=== PATIENT | male | born 1965 | race African-American/Black ===

== ENCOUNTER 2017-04-21 07:00 | Outpatient (CLI) | payer MEDICARE, MEDICAID | END 2017-04-21 07:01 | disposition home or self-care (01) | LOC: BICMRI 07:00 | DX: M54.2 Cervicalgia (principal); M54.5 Low back pain; M47.892 Other spondylosis, cervical region; M50.20 Other cervical disc displacement, unspecified cervical region; M48.02 Spinal stenosis, cervical region; M48.061 Spinal stenosis, lumbar region without neurogenic claudication; M99.71 Connective tissue and disc stenosis of intervertebral foramina of cervical region; M25.78 Osteophyte, vertebrae; M99.73 Connective tissue and disc stenosis of intervertebral foramina of lumbar region | CPT/HCPCS: 72141 ==

== ENCOUNTER 2017-04-21 13:35 | Outpatient (CLI) | payer MEDICARE, MEDICAID | END 2017-04-21 13:36 | disposition home or self-care (01) | LOC: BICMRI 13:35 | PROVIDERS: ATTEND Anesthesiology Pain Medicine | DX: M47.26 Other spondylosis with radiculopathy, lumbar region (principal); M54.5 Low back pain; G89.29 Other chronic pain ==

== ENCOUNTER 2017-05-17 13:26 | Emergency (ER) | payer MEDICARE, MEDICAID | END 2017-05-17 14:15 | disposition home or self-care (01) | LOC: ERS 13:26 | DX: K61.0 Anal abscess (principal); K61.1 Rectal abscess; R09.81 Nasal congestion; I70.90 Unspecified atherosclerosis; F32.9 Major depressive disorder, single episode, unspecified; F17.210 Nicotine dependence, cigarettes, uncomplicated | CPT/HCPCS: 99283 ==

== ENCOUNTER 2017-05-20 02:15 | Observation (INO) | payer MEDICARE, MEDICAID ==
[2017-05-20 03:43] LABS: Prothrombin Time 13.1 SEC (12.0-14.7)
[2017-05-20 03:44] LABS: PTT 32.6 SEC (22.9-36.1)
[2017-05-20 03:55] LABS: Hemoglobin 13.5 g/dL (14.0-18.0); Mean Corpuscular HGB CONC 33.5 g/dL (32.0-36.0); Mean Corpuscular Hemoglobin 33.6 pg (27.0-31.0); Mean Platelet Volume 6.8 fL (7.4-10.4); Platelet Count 252 thou/uL (130-400); RBC Distribution Width 11.2 % (11.5-14.5); Red Blood Cell (RBC) Count 4.02 mill/uL (4.70-6.10); White Blood Cell (WBC) Count 6.5 thou/uL (4.8-10.8)
[2017-05-20 03:57] LABS: Acetaminophen Less than 6.0 mcg/mL (10.0-30.0); Alcohol 340 mg/dL (Less than 10); Salicylate Less than 8.0 mg/dL (15.0-30.0)
[2017-05-20 03:59] LABS: ALT (SGPT) 27 U/L (8-55); AST (SGOT) 28 U/L (5-34); Albumin 3.5 g/dL (3.5-5.0); Alkaline Phosphatase 66 U/L (40-150); Anion Gap 14 mmol/L (10-20); BUN (Urea Nitrogen) 5 mg/dL (8.9-20.6); Bilirubin, Total 0.2 mg/dL (0.2-1.2); Calc. Creatinine Clearance 0 mL/min (70-130); Calcium 8.3 mg/dL (7.8-10.44); Carbon Dioxide 26 mmol/L (22-29); Chloride 107 mmol/L (98-107); Estimated GFR-MDRD Greater than 90; Glucose 87 mg/dL (70-105); Lipase 103 U/L (8-78); Magnesium 2.1 mg/dL (1.6-2.6); Potassium 4.3 mmol/L (3.5-5.1); Protein, Total 6.5 g/dL (6.0-8.3); Sodium 143 mmol/L (136-145)
[2017-05-20 04:07] LABS: Troponin I Less than 0.010 ng/mL (< 0.028)
[2017-05-20 04:10] LABS: Band 1 % (5-11); Eosinophils 3 % (0-10); Lymphocytes 50 % (21-51); MDiff Complete? YES; Monocytes 4 % (0-10); Neutrophil 41 % (42-75)
[2017-05-20] MEDS ORDERED: traMADol HCl 50 MG TAB PO PRN (04:15)
[2017-05-20] MEDS ORDERED: Ondansetron HCl/PF 4 MG/2 ML Vial IVP PRN (04:16)
[2017-05-20] MEDS ORDERED: hydrALAZINE 20 MG/ML VIAL SLOW IVP PRN (04:16)
[2017-05-20] MEDS ORDERED: Dextrose 5% in Water 1,000 ML IV PRN (04:16)
[2017-05-20] MEDS ORDERED: Dextrose 50% Abboject 50 ML SYRINGE SLOW IVP PRN (04:16)
[2017-05-20] MEDS ORDERED: Ondansetron ODT 4 MG TAB PO PRN (04:16)
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
[2017-05-20] MEDS ORDERED: Oxazepam 10 MG CAP PO SCH ×2 (06:00→09:00)
[2017-05-20 07:31] VITALS: BMI 22.6
[2017-05-20] MEDS: Oxazepam 10 MG CAP PO SCH ×3 (08:02→20:31)
[2017-05-20] MEDS: Acetaminophen 500 MG TAB PO SCH ×4 (08:02→23:54)
[2017-05-20] MEDS: Famotidine/PF 20 mg/2ml Vial SLOW IVP SCH ×2 (08:02→20:31)
[2017-05-20] MEDS: Sodium Chloride 0.9% 1,000 ML IV SCH ×3 (08:02→20:30)
[2017-05-20] MEDS: Folic Acid 1 MG TAB PO SCH (08:04)
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
--- NOTE | 2017-05-20 08:43 | RAD ---
CHEST 1 VIEW: HISTORY: Fall. Chest injury. COMPARISON: 03/19/16. FINDINGS: Cardiac silhouette is magnified by projection. Pulmonary vasculature is unremarkable. Mediastinum i s midline. There is no confluent airspace consolidation or evidence of pneumothorax. IMPRESSION: No active cardiopulmonary abnormalities are demonstrated. POS: [facility]
[2017-05-20] MEDS ORDERED: Lidocaine 1% (PF) 30 ML VIAL ONE ×2 (11:13→11:27)
[2017-05-20] MEDS ORDERED: Lidocaine 1% w/Epinephrine 1:200K 30 ML VIAL FS SCH (11:45)
[2017-05-20] MEDS: traMADol HCl 50 MG TAB PO PRN ×3 (13:09→23:53)
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
--- NOTE | 2017-05-20 18:47 | PRG ---
DATE OF SERVICE: 05/20/2017 SUBJECTIVE: The patient is hospital day #2 status post fall, complained of neck pain and arm pain. The patient was highly intoxicated when he came to the Emergency Department with a blood alcohol of 3 40. The patient underwent evaluation and examination and was noted to have a questionable finding on his C-spine, but had no neurologic symptoms with that. This morning, the patient remains in a cervi halley collar per Neurosurgery's instructions. His pain is being controlled and his chief complaint is that he would like to go outside and smoke a cigarette. Otherwise, he is tolerating a diet and has b een out of bed to utilize the bathroom. The patient informed us that he was scheduled for surgery to day with Dr. Isaacs for gluteal abscess as an outpatient. We will notify Dr. Isaacs that the patient is here to see how he would like to arrange followup. PHYSICAL EXAMINATION: VITAL SIGNS: Temperature is 97.8, heart rate 76, blood pressure 109/70, respirations 18, oxygen satu ration 96% on room air. GENERAL: Patient is resting comfortably. He is alert and oriented x3. Mahomet coma scale is 15. LUNGS: Clear to auscultation bilaterally. HEART: Regular rate and rhythm. ABDOMEN: Soft, flat, nontender with active bowel sounds. EXTREMITIES: Neurovascularly intact x4. LABORATORY DATA: There were no labs or radiographs to review this morning. ASSESSMENT AND PLAN: 1. Status post ground level fall. 2. Neck pain. 3. Chronic gluteal abscess. Plan will be to continue supportive care. The patient will be discharged from our service. We will let Dr. Isaacs know that. The patient no longer requires a trauma admission.
[2017-05-20] MEDS ORDERED: Magnesium Citrate 300 ML BOT PO SCH (20:00)
[2017-05-20] MEDS: Amoxicillin/Potassium Clav 500 MG TAB PO SCH (20:31)
[2017-05-21] MEDS: Acetaminophen 500 MG TAB PO SCH ×2 (04:40→12:56)
[2017-05-21] MEDS: Sodium Chloride 0.9% 1,000 ML IV SCH (04:41)
[2017-05-21] MEDS: Oxazepam 10 MG CAP PO SCH ×2 (04:41→14:43)
[2017-05-21 05:04] VITALS: BP 111/71; TEMP 97.3
[2017-05-21] MEDS ORDERED: Lidocaine 2% Jelly 5 ML TUBE ONE (06:48)
[2017-05-21] MEDS ORDERED: Bupivacaine PF 0.5% 30 ML VIAL ONE (06:48)
[2017-05-21] MEDS ORDERED: Lidocaine 2% w/Epinephrine 1:200K 20 ML VIAL ONE (06:48)
[2017-05-21] MEDS ORDERED: Fentanyl 100 MCG/2 ML VIAL ONE (07:24)
--- NOTE | 2017-05-21 09:03 | OP ---
DATE OF PROCEDURE: 05/21/2017 PREOPERATIVE DIAGNOSIS: Perirectal abscess. POSTOPERATIVE DIAGNOSIS: Induration perirectal left, anterior lateral. SURGEON: Dr. Luke Isaacs ANESTHESIA: General. Local 0.25% Marcaine mixed with 1% Xylocaine with epinephrine. PROCEDURE: Incision and drainage of perirectal abscess. FINDINGS: The patient did not have any purulent material, but it was indurated, careful diligent sea rch for the surrounding area failed to reveal a distinct abscess, the skin was excoriated, macerated overlying this it may have been more just a local cellulitis soft tissue infection and not a true per irectal abscess. PROCEDURE IN DETAIL: The patient was taken to the operating room where under general anesthesia in t he dorsal lithotomy position, the perianal area and buttocks prepared with Betadine, draped in routin e fashion. Local anesthetic infiltrated into skin and subcutaneous tissue. Radial incision made lef t anterior lateral and carried down through the skin and subcutaneous tissue. There was indurated ar ea. This was undermined, dissected and there is no drainage as noted above. Wound left open and pac ked open after gaining hemostasis with the cautery. The patient tolerated the procedure well. The plan postoperative is for the patient be discharged home. He will follow up with Dr. Alcantara for cervical spine problems and his paresthesias. He has chronic pain management physician, he will requ katy his pain medications from that physician. The patient was given Ultram and Augmentin. He will f ollow up in my office in about 2 weeks. He will remove the packing later tonight or tomorrow when he begins daily warm to hot baths with soap and water, washing the area. He does not have to repack e area. He will place a Kotex pad or gauze dressing in his underwear to control any drainage.
[2017-05-21] MEDS: Folic Acid 1 MG TAB PO SCH (10:03)
[2017-05-21] MEDS: traMADol HCl 50 MG TAB PO PRN (10:03)
[2017-05-21] MEDS: Amoxicillin/Potassium Clav 500 MG TAB PO SCH (10:04)
[2017-05-21] MEDS: Famotidine/PF 20 mg/2ml Vial SLOW IVP SCH (10:04)
[2017-05-21] MEDS ORDERED: Propofol 200 MG/20 ML VIAL ONE (12:08)
[2017-05-21] MEDS ORDERED: Ketorolac Tromethamine 30 MG/ML VIAL ONE (12:08)
[2017-05-21] MEDS ORDERED: Ondansetron HCl/PF 4 MG/2 ML Vial ONE (12:08)
[2017-05-21] MEDS ORDERED: Lidocaine 1% PF 5 ML VIAL ONE (12:08)
--- NOTE | 2017-05-29 17:49 | EKG ---
Test Reason : Blood Pressure : / mmHG Vent. Rate : 084 BPM Atrial Rate : 084 BPM P-R Int : 142 ms QRS Dur : 096 ms QT Int : 388 ms P-R-T Axes : -01 021 -01 degrees QTc Int : 458 ms Normal sinus rhythm Normal ECG Confirmed by MILAD SMITH D.O. ([id number]), commercial production editor CATINA PEDERSON ([id number]) on 05/29/2017 5:48:13 PM Referred By: Confirmed By:MILAD SMITH D.O.
== END 2017-05-21 14:43 | disposition home or self-care (01) ==
LOC: ERS 02:15 → SURG A 05:47
PROVIDERS: ADMIT Specialist; ATTEND Specialist
PROC: 0D9P0ZX Drainage of Rectum, Open Approach, Diagnostic (ICD-10-PCS; principal; 2017-05-20)
DX: K61.1 Rectal abscess (principal); S00.81XA Abrasion of other part of head, initial encounter; F10.129 Alcohol abuse with intoxication, unspecified; F17.210 Nicotine dependence, cigarettes, uncomplicated; I10 Essential (primary) hypertension; M50.20 Other cervical disc displacement, unspecified cervical region; M81.0 Age-related osteoporosis without current pathological fracture; G89.29 Other chronic pain; G89.11 Acute pain due to trauma; Z79.899 Other long term (current) drug therapy; Z96.651 Presence of right artificial knee joint; Z98.890 Other specified postprocedural states; Z91.81 History of falling; Z82.49 Family history of ischemic heart disease and other diseases of the circulatory system; Z82.61 Family history of arthritis; Y90.8 Blood alcohol level of 240 mg/100 ml or more; W19.XXXA Unspecified fall, initial encounter
CPT/HCPCS: 46040; 70450; 71045; 72125; 80053; 80307; 82553; 83690; 83735; 84484; 85025; 85610; 85730; 93005; 96374; 96376 ×2; 97139; 99285; G0378; 36415; G0390; J1885; J2001; J2405; J2704; J3010; S0020; S0028

== ENCOUNTER 2017-09-02 01:51 | Observation (INO) | payer MEDICARE, MEDICAID ==
[2017-09-02 02:19] LABS: #Basophils 0.1 thou/uL (0.0-0.2); #Eosinphils 0.1 thou/uL (0.0-0.7); #Lymphocytes 2.1 thou/uL (1.20-3.40); #Monocytes 0.6 thou/uL (0.11-0.59); #Neutrophils 5.1 thou/uL (1.40-6.50); %Basophils 0.9 % (0.0-1.0); %Lymphocytes 26.2 % (21.0-51.0); %Monocytes 7.1 % (0.0-10.0); %Neutrophils 64.9 % (42.0-75.0); Hemoglobin 12.6 g/dL (14.0-18.0); Mean Corpuscular HGB CONC 34.3 g/dL (32.0-36.0); Mean Corpuscular Hemoglobin 34.1 pg (27.0-31.0); Mean Corpuscular Volume 99.4 fl (80.0-94.0); Mean Platelet Volume 6.9 fL (7.4-10.4); Platelet Count 145 thou/uL (130-400); RBC Distribution Width 11.5 % (11.5-14.5); Red Blood Cell (RBC) Count 3.69 mill/uL (4.70-6.10); White Blood Cell (WBC) Count 7.8 thou/uL (4.8-10.8)
[2017-09-02 02:35] LABS: ALT (SGPT) 46 U/L (8-55); AST (SGOT) 138 U/L (5-34); Albumin 3.1 g/dL (3.5-5.0); Alcohol 296 mg/dL (Less than 10); Alkaline Phosphatase 94 U/L (40-150); Anion Gap 13 mmol/L (10-20); BUN (Urea Nitrogen) 9 mg/dL (8.9-20.6); Bilirubin, Total 0.3 mg/dL (0.2-1.2); Calc. Creatinine Clearance 0 mL/min (70-130); Calcium 7.4 mg/dL (7.8-10.44); Carbon Dioxide 19 mmol/L (22-29); Chloride 113 mmol/L (98-107); Estimated GFR-MDRD Greater than 90; Globulin 2.5 g/dL (2.4-3.5); Glucose 91 mg/dL (70-105); Potassium 3.9 mmol/L (3.5-5.1); Protein, Total 5.6 g/dL (6.0-8.3); Sodium 141 mmol/L (136-145)
[2017-09-02] MEDS ORDERED: Fentanyl 100 MCG/2 ML VIAL ONE ×2 (02:44→05:47)
[2017-09-02] MEDS ORDERED: Lidocaine 1% (PF) 30 ML VIAL ONE (03:26)
[2017-09-02] MEDS ORDERED: Multivitamins, Adult 10 ML, Thiamine HCl 100 MG, Folic Acid 1 MG in Dextrose 5 %-0.45 %... IV SCH (04:00)
[2017-09-02] MEDS ORDERED: CEFAZOLIN 1 GM, Syringe 2.5 ML in Sterile Water 7.5 ML SLOW IVP SCH (04:00)
[2017-09-02] MEDS ORDERED: Lidocaine 1% w/Epinephrine 1:100K 20 ML VIAL ONE (04:23)
[2017-09-02] MEDS ORDERED: Ondansetron HCl/PF 4 MG/2 ML Vial IVP PRN (04:35)
[2017-09-02] MEDS ORDERED: Ondansetron ODT 4 MG TAB PO PRN (04:35)
[2017-09-02] MEDS ORDERED: Dextrose 5% in Water 1,000 ML IV PRN (04:35)
[2017-09-02] MEDS ORDERED: Dextrose 50% Abboject 50 ML SYRINGE SLOW IVP PRN (04:35)
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
[2017-09-02] MEDS ORDERED: Bacitracin Zinc Ointment 30 gm TUBE ONE (06:40)
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
[2017-09-02] MEDS: Acetaminophen 500 MG TAB PO SCH ×3 (10:22→17:22)
[2017-09-02] MEDS: Famotidine 20 MG TAB PO SCH ×2 (10:22→21:52)
[2017-09-02] MEDS: Multivit, Therapeutic 1 TAB PO SCH (10:22)
[2017-09-02] MEDS: Folic Acid 1 MG TAB PO SCH (10:22)
[2017-09-02] MEDS: Ibuprofen 800 MG TAB PO SCH ×3 (10:22→21:57)
[2017-09-02] MEDS: Lactated Ringer's 1,000 ML IV SCH ×3 (10:22→21:49)
[2017-09-02] MEDS: Bacitracin Zinc 1 Packet TOP SCH ×3 (10:22→22:23)
[2017-09-02] MEDS: Polyethylene Glycol 3350 17 GM Packet PO SCH (10:23)
[2017-09-02] MEDS: Senokot S 8.6-50 MG TAB PO SCH ×2 (10:23→21:52)
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
[2017-09-02] MEDS ORDERED: Lidocaine 1% PF 5 ML VIAL ONE (12:41)
[2017-09-02] MEDS ORDERED: PROPOFOL 200 MG/20 ML VIAL ONE (12:41)
[2017-09-02] MEDS ORDERED: PHENYLEPHRINE-NS 100 MCG/ML 10 ML SYRINGE ONE (12:41)
[2017-09-02] MEDS ORDERED: Succinylcholine Chloride 20 MG/ML 10 ml SYRINGE FS ONE (12:41)
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
[2017-09-02] MEDS ORDERED: ISOVUE-370 76%-LOCM 1 ML ONE (13:21)
[2017-09-02] MEDS: Oxazepam 10 MG CAP PO SCH ×2 (14:59→21:53)
[2017-09-03] MEDS: Acetaminophen 500 MG TAB PO SCH ×5 (00:14→23:58)
[2017-09-03] MEDS: Lactated Ringer's 1,000 ML IV SCH (04:46)
[2017-09-03 05:09] LABS: Anion Gap 8 mmol/L (10-20); BUN (Urea Nitrogen) 8 mg/dL (8.9-20.6); Calc. Creatinine Clearance 131 mL/min (70-130); Calcium 8.2 mg/dL (7.8-10.44); Carbon Dioxide 27 mmol/L (22-29); Chloride 107 mmol/L (98-107); Estimated GFR-MDRD Greater than 90; Glucose 111 mg/dL (70-105); Magnesium 2.3 mg/dL (1.6-2.6); Phosphorus 3.3 mg/dL (2.3-4.7); Potassium 3.6 mmol/L (3.5-5.1); Sodium 138 mmol/L (136-145)
[2017-09-03] MEDS: Ibuprofen 800 MG TAB PO SCH ×3 (05:45→21:59)
[2017-09-03] MEDS: Oxazepam 10 MG CAP PO SCH ×3 (05:45→20:25)
[2017-09-03] MEDS: Senokot S 8.6-50 MG TAB PO SCH ×2 (09:20→20:24)
[2017-09-03] MEDS: Famotidine 20 MG TAB PO SCH ×2 (09:20→20:25)
[2017-09-03] MEDS: Multivit, Therapeutic 1 TAB PO SCH (09:20)
[2017-09-03] MEDS: Folic Acid 1 MG TAB PO SCH (09:20)
[2017-09-03] MEDS: Polyethylene Glycol 3350 17 GM Packet PO SCH (09:20)
[2017-09-03] MEDS: Bacitracin Zinc 1 Packet TOP SCH ×3 (09:21→22:03)
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
[2017-09-04] MEDS: Acetaminophen 500 MG TAB PO SCH (05:34)
[2017-09-04] MEDS: Ibuprofen 800 MG TAB PO SCH (05:34)
[2017-09-04 08:09] VITALS: BP 158/94; TEMP 98
[2017-09-04] MEDS: Bacitracin Zinc 1 Packet TOP SCH (09:13)
[2017-09-04] MEDS: Multivit, Therapeutic 1 TAB PO SCH (09:13)
[2017-09-04] MEDS: Folic Acid 1 MG TAB PO SCH (09:13)
[2017-09-04] MEDS: Famotidine 20 MG TAB PO SCH (09:13)
[2017-09-04] MEDS: Polyethylene Glycol 3350 17 GM Packet PO SCH (09:14)
[2017-09-04] MEDS: Senokot S 8.6-50 MG TAB PO SCH (09:14)
[2017-09-04] MEDS: Oxazepam 10 MG CAP PO SCH (09:16)
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
== END 2017-09-04 11:08 | disposition home or self-care (01) ==
LOC: ERS 01:51 → SDC/OP 05:19 → SURG B 08:41
PROVIDERS: ADMIT Specialist; ATTEND Specialist
PROC: 08QRXZZ Repair Left Lower Eyelid, External Approach (ICD-10-PCS; principal; 2017-09-02)
DX: S01.112A Laceration without foreign body of left eyelid and periocular area, initial encounter (principal); F10.129 Alcohol abuse with intoxication, unspecified; I10 Essential (primary) hypertension; M81.0 Age-related osteoporosis without current pathological fracture; Z98.890 Other specified postprocedural states; Y09 Assault by unspecified means
CPT/HCPCS: 12001; 12011; 40650; 70450; 70486; 71260; 72125; 73030; 73130; 74177; 80048; 80053; 80307; 83735; 84100; 85025; 96361; 96365; 96375; 99291; G0378 ×2; 36415; A4216; G0390; J0690; J2001; J2704; J3010; J3411; J7042

== ENCOUNTER 2017-09-16 10:56 | Emergency (ER) | payer MEDICARE, MEDICAID ==
[2017-09-16] MEDS ORDERED: ISOVUE-370 76%-LOCM 1 ML ONE (12:14)
--- NOTE | 2017-09-16 12:30 | RAD ---
PA AND LATERAL CHEST: History: Chest pain. FINDINGS: Comparison is made with exam of 03-19-16. The heart size is normal. The lungs are expanded without focal areas of consolidation, pneumothoraces , or pleural effusions. No acute osseous abnormalities are seen. There is mild compression of the low er thoracic vertebral body. IMPRESSION: No radiographic evidence of acute cardiopulmonary process. POS: OFF
[2017-09-16] MEDS ORDERED: Ketorolac Tromethamine 30 MG/ML VIAL ONE (12:47)
[2017-09-16 13:06] LABS: #Basophils 0.1 thou/uL (0.0-0.2); #Eosinphils 0.3 thou/uL (0.0-0.7); #Lymphocytes 3.3 thou/uL (1.20-3.40); #Monocytes 0.7 thou/uL (0.11-0.59); #Neutrophils 3.9 thou/uL (1.40-6.50); %Basophils 1.3 % (0.0-1.0); %Eosinophils 3.3 % (0.0-10.0); %Lymphocytes 40.2 % (21.0-51.0); %Monocytes 8.4 % (0.0-10.0); %Neutrophils 46.8 % (42.0-75.0); Hemoglobin 12.8 g/dL (14.0-18.0); Mean Corpuscular HGB CONC 33.3 g/dL (32.0-36.0); Mean Corpuscular Hemoglobin 33.5 pg (27.0-31.0); Mean Platelet Volume 6.2 fL (7.4-10.4); Platelet Count 411 thou/uL (130-400); RBC Distribution Width 11.5 % (11.5-14.5); Red Blood Cell (RBC) Count 3.81 mill/uL (4.70-6.10); White Blood Cell (WBC) Count 8.3 thou/uL (4.8-10.8)
[2017-09-16 13:32] LABS: ALT (SGPT) 15 U/L (8-55); AST (SGOT) 16 U/L (5-34); Albumin 3.6 g/dL (3.5-5.0); Alkaline Phosphatase 84 U/L (40-150); Anion Gap 9 mmol/L (10-20); BUN (Urea Nitrogen) 6 mg/dL (8.9-20.6); Bilirubin, Total 0.3 mg/dL (0.2-1.2); Calc. Creatinine Clearance 0 mL/min (70-130); Calcium 8.7 mg/dL (7.8-10.44); Carbon Dioxide 26 mmol/L (22-29); Chloride 109 mmol/L (98-107); Estimated GFR-MDRD Greater than 90; Globulin 2.6 g/dL (2.4-3.5); Glucose 85 mg/dL (70-105); Potassium 4.4 mmol/L (3.5-5.1); Protein, Total 6.2 g/dL (6.0-8.3); Sodium 140 mmol/L (136-145)
[2017-09-16 13:34] LABS: CKMB 1.7 ng/mL (0-6.6); Troponin I Less than 0.010 ng/mL (< 0.028)
--- NOTE | 2017-09-16 14:38 | CT ---
CTA THORAX UTILIZING IV CONTRAST AND 3D REFORMATTED IMAGING: COMPARISON: 07/29/2015 FINDINGS: No central or segmental pulmonary embolus is evident. The heart and great vessels appear within norm al limits. There is scattered emphysema. There is a small sub-4-mm pulmonary nodule within the righ t upper lobe on image 51. This is likely stable to the prior exam. There is some subsegmental volum e loss involving both lower lobes. No consolidation, pleural effusion, or pneumothorax is evident. There is fatty infiltration of the liver. There is scattered degenerative and osteoarthritic change. IMPRESSION: 1. No central or segmental pulmonary embolus. 2. Emphysema. 3. Fatty liver. POS: [facility]
== END 2017-09-16 14:19 | disposition home or self-care (01) ==
LOC: ERS 10:56
DX: S20.219A Contusion of unspecified front wall of thorax, initial encounter (principal); I10 Essential (primary) hypertension; F17.210 Nicotine dependence, cigarettes, uncomplicated; F32.9 Major depressive disorder, single episode, unspecified; Z79.891 Long term (current) use of opiate analgesic; Z79.899 Other long term (current) drug therapy; Y04.0XXA Assault by unarmed brawl or fight, initial encounter
CPT/HCPCS: 36415; 71046; 71275; 80053; 82553; 84484; 85025; 85379; 93005; 96374; J1885

== ENCOUNTER 2017-11-14 14:58 | Emergency (ER) | payer MEDICARE, MEDICAID ==
[2017-11-14] MEDS ORDERED: Acetaminophen 500 MG TAB ONE (15:40)
== END 2017-11-14 15:50 | disposition home or self-care (01) ==
LOC: ERS 14:58
DX: S00.83XA Contusion of other part of head, initial encounter (principal); I10 Essential (primary) hypertension; G89.29 Other chronic pain; F32.9 Major depressive disorder, single episode, unspecified; F17.210 Nicotine dependence, cigarettes, uncomplicated; Y04.2XXA Assault by strike against or bumped into by another person, initial encounter; Z79.899 Other long term (current) drug therapy
CPT/HCPCS: 93005

== ENCOUNTER 2018-01-11 15:01 | Emergency (ER) | payer MEDICARE, MEDICAID ==
[2018-01-11] MEDS ORDERED: Nitroglycerin 0.4 MG TAB (25 Tab Bottle) ONE (15:20)
[2018-01-11] MEDS ORDERED: Pantoprazole 40 MG VIAL ONE (15:20)
[2018-01-11 15:27] LABS: Hemoglobin 16.4 g/dL (14.0-18.0); Mean Corpuscular HGB CONC 34.9 g/dL (32.0-36.0); Mean Platelet Volume 7.3 fL (7.4-10.4); Platelet Count 235 thou/uL (130-400); RBC Distribution Width 11.7 % (11.5-14.5); Red Blood Cell (RBC) Count 4.68 mill/uL (4.70-6.10)
[2018-01-11 15:45] LABS: Eosinophils 3 % (0-10); Lymphocytes 60 % (21-51); MDiff Complete? YES; Monocytes 1 % (0-10); Neutrophil 33 % (42-75); PLT Morphology Comment Appears Adequate; RBC Morphology Normal; Reactive Lymphocytes 3 % (0-10)
--- NOTE | 2018-01-11 15:46 | RAD ---
PORTABLE AP CHEST: Date: 01/11/18 HISTORY: Chest pain. COMPARISON: 09/16/17. FINDINGS: Cardiac silhouette and pulmonary vasculature are within normal limits for the portable technique of t he study. The lungs remain clear. No other interval change. IMPRESSION: No acute cardiopulmonary process. POS: [facility]
[2018-01-11 15:53] LABS: Troponin I Less than 0.010 ng/mL (< 0.028)
[2018-01-11 16:07] LABS: ALT (SGPT) 17 U/L (8-55); AST (SGOT) 38 U/L (5-34); Albumin 4.2 g/dL (3.5-5.0); Alkaline Phosphatase 100 U/L (40-150); Anion Gap 13 mmol/L (10-20); BUN (Urea Nitrogen) 8 mg/dL (8.4-25.7); Bilirubin, Total 0.5 mg/dL (0.2-1.2); CK (CPK) 151 U/L (30-200); Calc. Creatinine Clearance 0 mL/min (70-130); Calcium 8.4 mg/dL (7.8-10.44); Carbon Dioxide 25 mmol/L (22-29); Chloride 110 mmol/L (98-107); Estimated GFR-MDRD 90; Globulin 3.1 g/dL (2.4-3.5); Glucose 88 mg/dL (70-105); Lipase 113 U/L (8-78); Potassium 4.1 mmol/L (3.5-5.1); Protein, Total 7.3 g/dL (6.0-8.3); Sodium 144 mmol/L (136-145)
[2018-01-11] MEDS ORDERED: Nitroglycerin 2% Ointment 1 INCH/1 GM Packet ONE (16:11)
[2018-01-11 16:18] LABS: Bilirubin Negative (Negative); Blood, Urine Trace (Negative); Clarity CLEAR (Clear); Glucose, Urine (Dipstick) Negative (Negative); Leukocyte Negative (Negative); Nitrite Negative (Negative); Protein, Urine (Dipstick) Negative (Neg-Trace); Specific Gravity, Urine 1.007 (1.002-1.036); Urobilinogen 0.2 mg/dL (0.2-1.0)
[2018-01-11 16:20] LABS: Bacteria/HPF None Seen HPF (None Seen); Hyaline Casts/LPF 0-3 HYALINE CAST LPF (0-3 Hyaline); RBC/HPF None Seen HPF (0-3); Squamous Epithelial None Seen HPF (0-3); WBC/HPF None Seen HPF (0-3)
[2018-01-11 19:03] LABS: Troponin I Less than 0.010 ng/mL (< 0.028)
== END 2018-01-11 20:43 | disposition home or self-care (01) ==
LOC: ERS 15:01
DX: R07.2 Precordial pain (principal); F10.10 Alcohol abuse, uncomplicated; I10 Essential (primary) hypertension; F32.9 Major depressive disorder, single episode, unspecified; F17.210 Nicotine dependence, cigarettes, uncomplicated
CPT/HCPCS: 36415; 71045; 80053; 81003; 81015; 82553; 83690; 83880; 84484; 85025; 93005; 96374; C9113

== ENCOUNTER 2018-01-12 01:10 | Emergency (ER) | payer MEDICARE, OTHER ==
--- NOTE | 2018-01-12 08:02 | RAD ---
LUMBAR SPINE 3 VIEWS: HISTORY: A 52-year-old male with a history of low back pain following a fall. FINDINGS: There are some disk-osteophytosis and facet arthrosis changes. No acute compression fracture. No si gnificant malalignment. IMPRESSION: Lumbar spondylosis without acute fracture or dislocation. POS: OFF
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
== END 2018-01-12 02:45 | disposition home or self-care (01) ==
LOC: ERS 01:10
DX: M54.6 Pain in thoracic spine (principal); I10 Essential (primary) hypertension; F32.9 Major depressive disorder, single episode, unspecified; F17.210 Nicotine dependence, cigarettes, uncomplicated; W18.30XA Fall on same level, unspecified, initial encounter
CPT/HCPCS: 72100; 72170